=== PATIENT | male | born 1955 | race Caucasian/White ===

== ENCOUNTER 2016-03-27 04:38 | Observation (INO) | payer MEDICAID ==
[2016-03-27] VITALS (7 sets, daily range): BP systolic 118–134; RESP 18–20; TEMP 97.7–98.2; Ht 165.1 cm; Wt 73.4 kg
[~2016-03-27] VITALS: Ht 165.1 cm; Wt 73.4 kg
[2016-03-27] MEDS ORDERED: ONDANSETRON 4 MG VIAL ONE (04:53)
[2016-03-27] MEDS ORDERED: MORPHINE 2 MG/ML SYR ONE (04:54)
[2016-03-27] MEDS ORDERED: MORPHINE 2 MG/ML SYR IV PRN (05:50)
[2016-03-27] MEDS ORDERED: LORAZEPAM 0.5 MG TAB PO PRN (05:50)
[2016-03-27] MEDS ORDERED: TEMAZEPAM 15 MG CAP PO PRN (05:50)
[2016-03-27] MEDS ORDERED: TRAMADOL 50 MG TAB PO PRN (05:50)
[2016-03-27] MEDS ORDERED: SODIUM CHLORIDE 0.9% FLUSH BAG 500 ML IV PRN (05:50)
[2016-03-27] MEDS ORDERED: DOCUSATE SOD 100 MG CAP PO PRN (05:50)
[2016-03-27] MEDS ORDERED: SALINE FLUSH 10 ML FLUSH PRN (05:50)
[2016-03-27] MEDS ORDERED: ACETAMINOPHEN 325 MG TAB PO PRN (05:50)
[2016-03-27] MEDS ORDERED: ONDANSETRON 4 MG VIAL IV PRN (05:50)
[2016-03-27] MEDS ORDERED: NITROGLYCERIN 50 MG/250 ML IV PRN (05:50)
[2016-03-27] MEDS ORDERED: NITROGLYCERIN SL 0.4 MG TAB SL PRN ×2 (05:50→14:55)
[2016-03-27] MEDS: ENOXAPARIN 60 MG/0.6 ML SYR SUBQ SCH ×2 (07:30→19:51)
[2016-03-27] MEDS: SALINE FLUSH 10 ML FLUSH SCH ×2 (07:31→19:50)
[2016-03-27] MEDS ORDERED: ASPIRIN EC 81 MG TAB PO SCH (08:00)
[2016-03-27] MEDS: CHOLECALCIFEROL 5,000 UNITS CAP PO SCH (16:27)
[2016-03-27] MEDS: PRASUGREL 10 MG TAB PO SCH (16:27)
[2016-03-28 02:50] VITALS: BP_SYST 118; RESP 20; TEMP 98.3
[2016-03-28] MEDS: ENOXAPARIN 60 MG/0.6 ML SYR SUBQ SCH (06:02)
[2016-03-28 07:54] VITALS: BP_SYST 112; RESP 20; TEMP 97.7
[2016-03-28] MEDS: SALINE FLUSH 10 ML FLUSH SCH (08:15)
[2016-03-28] MEDS: CHOLECALCIFEROL 5,000 UNITS CAP PO SCH (08:16)
[2016-03-28] MEDS: PRASUGREL 10 MG TAB PO SCH (08:16)
[2016-03-28] MEDS ORDERED: ASPIRIN 81 MG CHEW TAB PO SCH (09:00)
[2016-03-28 12:45] VITALS: BP_SYST 108; RESP 20; TEMP 98
[2016-03-28] MEDS ORDERED: RANOLAZINE ER 500 MG TAB PO SCH (13:05)
[2016-03-28 14:50] VITALS: BP_SYST 108; RESP 20; TEMP 98
[2016-03-28] MEDS ORDERED: Atorvastatin 20 MG TAB PO SCH (21:00)
== END 2016-03-28 13:53 | disposition home or self-care (01) ==
LOC: ER 04:38 → ENPENDDIS 05:33 → EMR 05:33 → PCU2 06:16
PROVIDERS: ADMIT Internal Medicine Cardiovascular Disease; ATTEND Internal Medicine Cardiovascular Disease
DX: R07.89 Other chest pain (principal); R94.31 Abnormal electrocardiogram [ECG] [EKG]; I25.10 Atherosclerotic heart disease of native coronary artery without angina pectoris; Z79.82 Long term (current) use of aspirin
CPT/HCPCS: 36415; 71010; 78452; 80053; 80061; 82550; 82553; 83735; 84484; 85025; 85610; 85730; 93005; 93017; 94799; 96374; 96375